=== PATIENT | female | born 1940 | race Caucasian/White ===

== ENCOUNTER 2018-03-22 11:56 | Inpatient (IN) | payer MEDICARE, MEDICAID ==
--- NOTE | 2018-03-22 12:29 | ED Physician Chart ---
ED Chief Complaint/HPI - Patient Information Date Seen:: 03/22/18 Time Seen:: 12:27 Chief Complaint:: Increased agitation History of Present Illness:: 78 yo female with bipolar disorder was brought from SNF to ER for evaluation of increased agitation and confusion. She did not have BM for 5 days. She had urinary frequency and burning sensation. She had abdominal pain with nausea and without vomiting. ED Review of Systems - Review of Systems General/Constitutional: No fever Skin: No skin lesions Head: Headache Eyes: No pain Neck: No neck pain Cardio Vascular: No chest pain Pulmonary: No SOB GI: Nausea, No vomiting, Constipation Musculoskeletal: No bone or joint pain Psychiatric: Prior psych history Neurological: Weakness ED Past Medical History - Past Medical History Past Medical History: HTN, DM, Dementia, Other (Lukemia in remission, pancreatitis) Social History: Non Smoker, No Alcohol, No Drug Use Psychiatricy History: Depression, Bipolar Family Medical History - Family Member Mother History Unknown: Yes ED Physical Exam - Physical Examination General/Constitutional: Awake Other Gen/Cons comments:: orinated to name, not place or time Skin: No skin lesions Neck: No nuchal rigidity Respiratory: No Wheeze/Rhonchi/Rales Cardio Vascular: RRR, No murmur, gallop, rubs, NL S1 S2 Other GI comments:: Abdominal distention and tenderness Extremities: normal strength in all extremities Neuro/Psych: No focal deficits ED Labs/Radiology/EKG Results - Lab Results Results: Laboratory Last Values WBC 2.6 Th/cmm (4.8-10.8) L 03/22/18 13:00 RBC 3.62 Mil/cmm (3.80-5.20) L 03/22/18 13:00 Hgb 12.0 gm/dL (12-16) 03/22/18 13:00 Hct 35.3 % (41.0-60) L 03/22/18 13:00 MCV 97.4 fl (81-100) 03/22/18 13:00 MCH 33.0 pg (27.0-31.0) H 03/22/18 13:00 MCHC Differential 33.9 pg (28.0-36.0) 03/22/18 13:00 RDW 13.2 % (11.5-20.0) 03/22/18 13:00 Plt Count 74 Th/cmm (150-400) L 03/22/18 13:00 MPV 8.3 fl 03/22/18 13:00 Neutrophils % 59.6 % (40.0-80.0) 03/22/18 13:00 Lymphocytes % 27.3 % (20.0-50.0) 03/22/18 13:00 Monocytes % 9.5 % (2.0-10.0) 03/22/18 13:00 Eosinophils % 3.0 % (0.0-5.0) 03/22/18 13:00 Basophils % 0.6 % (0.0-2.0) 03/22/18 13:00 Sodium 131 mEq/L (136-145) L 03/22/18 13:00 Potassium 3.7 mEq/L (3.5-5.1) 03/22/18 13:00 Chloride 98 mEq/L (98-107) 03/22/18 13:00 Carbon Dioxide 21.5 mEq/L (21.0-31.0) 03/22/18 13:00 Anion Gap 15.2 (7.0-16.0) 03/22/18 13:00 BUN 17 mg/dL (7-25) 03/22/18 13:00 Creatinine 0.7 mg/dL (0.6-1.2) 03/22/18 13:00 Est GFR ( Amer) TNP 03/22/18 13:00 Est GFR (Non-Af Amer) TNP 03/22/18 13:00 BUN/Creatinine Ratio 24.3 03/22/18 13:00 Glucose 118 mg/dL (70-105) H 03/22/18 13:00 Whole Bld Lactic Acid 4.28 mmol/L (0.60-1.99) H* 03/22/18 Unknown Calcium 9.7 mg/dL (8.6-10.3) 03/22/18 13:00 Magnesium 1.8 mg/dL (1.9-2.7) L 03/22/18 13:00 Total Bilirubin 0.7 mg/dL (0.3-1.0) 03/22/18 13:00 AST 25 U/L (13-39) 03/22/18 13:00 ALT 19 U/L (7-52) 03/22/18 13:00 Alkaline Phosphatase 60 U/L (34-104) 03/22/18 13:00 Total Protein 7.1 gm/dL (6.0-8.3) 03/22/18 13:00 Albumin 3.8 gm/dL (3.7-5.3) 03/22/18 13:00 Globulin 3.3 gm/dL 03/22/18 13:00 Albumin/Globulin Ratio 1.2 (1.0-1.8) 03/22/18 13:00 TSH 0.99 uIU/ml (0.34-5.60) 03/22/18 13:00 Urine Source RANDOM 03/22/18 13:30 Urine Color YELLOW 03/22/18 13:30 Urine Clarity HAZY (CLEAR) 03/22/18 13:30 Urine pH 6.5 (4.6 - 8.0) 03/22/18 13:30 Ur Specific [place] <= 1.005 (1.005-1.030) 03/22/18 13:30 Urine Protein NEGATIVE mg/dL (NEGATIVE) 03/22/18 13:30 Urine Glucose (UA) NEGATIVE mg/dL (NEGATIVE) 03/22/18 13:30 Urine Ketones NEGATIVE mg/dL (NEGATIVE) 03/22/18 13:30 Urine Blood NEGATIVE (NEGATIVE) 03/22/18 13:30 Urine Nitrate NEGATIVE (NEGATIVE) 03/22/18 13:30 Urine Bilirubin NEGATIVE (NEGATIVE) 03/22/18 13:30 Urine Urobilinogen 0.2 E.U./dL (0.2 - 1.0) 03/22/18 13:30 Ur Leukocyte Esterase TRACE (NEGATIVE) H 03/22/18 13:30 Urine RBC 0-2 /hpf (0-5) 03/22/18 13:30 Urine WBC 2-5 /hpf (0-5) 03/22/18 13:30 Ur Epithelial Cells FEW /lpf (FEW) 03/22/18 13:30 Urine Bacteria 1+ /hpf (NONE SEEN) H 03/22/18 13:30 - Radiology Results Results: CXR: no focal consolidation ED Assessment - Assessment General Assessment: UTI Leukopenia Hyponatremia Fecal impaction Psychosis Bipolar disorder Dementia Assessment/Comments:: CBC, CMP, UA CXR, EKG, KUB NS 1L IV bolus Rocephin 1g IV Fleet enema Dr. Rayo recommended patient to be admitted to geropsych unit and Dr. Rayo will manage UTI and other medical conditions. ED Septic Shock - . Is Septic Shock (SBP<90, OR Lactate>4 mmol\L) present?: No - <6hrs of presentation: Assessment of Lungs: Lung CTA bilateral Assessment of Heart: RRR EKG Interpretation: NSR Capillary refill evaluation: Capillary refill < 2 secs Skin Exam: Warm - Peripheral pulse evaluation Radial Peripheral pulse evaluation-quality: +2 (normal), Symmetrical - Time of Reassessment Time of Reassessment: 19:05 ED Reassessment (Disposition) - Reassessment Reassessment Condition:: Improved - Patient Disposition Discharge/Transfer:: Lauren w/in this hosp Admitting Medical Physician:: Sohail Rayo Admitting Psych Physician:: Gisel Chapa ED Discharge Plan - Patient Disposition Admit/Discharge/Transfer: Acute Care w/in this hosp Condition at Disposition: Guarded
[2018-03-22 13:11] LABS: % BASOPHILS 0.6 % (0.0-2.0); % LYMPHOCYTES 27.3 % (20.0-50.0); % MONOCYTES 9.5 % (2.0-10.0); % NEUTROPHILS 59.6 % (40.0-80.0); EOSINOPHILE ABSOLUTE 0.1 Th/cmm (0.1-0.4); HEMATOCRIT 35.3 % (41.0-60); LYMPHOCYTE ABSOLUTE 0.7 Th/cmm (1.5-3.0); MEAN CELL VOLUME 97.4 fl (81-100); MEAN CORPUSCULAR HGB CONC 33.9 pg (28.0-36.0); MEAN PLATELET VOLUME 8.3 fl; MONOCYTE ABSOLUTE 0.2 Th/cmm (0.3-1.0); NEUTROPHILE ABSOLUTE 1.6 Th/cmm (1.8-8.0); PLATELET COUNT 74 Th/cmm (150-400); RED BLOOD COUNT 3.62 Mil/cmm (3.80-5.20); RED CELL DISTRIBUTION WIDTH 13.2 % (11.5-20.0)
[2018-03-22 13:13] LABS: WHITE BLOOD COUNT 2.6 Th/cmm (4.8-10.8)
[2018-03-22 13:26] LABS: ALB/GLOB RATIO 1.2 (1.0-1.8); ALBUMIN 3.8 gm/dL (3.7-5.3); ALKALINE PHOSPHATASE 60 U/L (34-104); ANION GAP 15.2 (7.0-16.0); BILIRUBIN,TOTAL 0.7 mg/dL (0.3-1.0); BUN - UREA NITROGEN 17 mg/dL (7-25); CALCIUM SERUM 9.7 mg/dL (8.6-10.3); CARBON DIOXIDE 21.5 mEq/L (21.0-31.0); CHLORIDE 98 mEq/L (98-107); CREATININE - SERUM 0.7 mg/dL (0.6-1.2); GLUCOSE 118 mg/dL (70-105); MAGNESIUM 1.8 mg/dL (1.9-2.7); POTASSIUM SERUM 3.7 mEq/L (3.5-5.1); SGOT 25 U/L (13-39); SGPT/ALT 19 U/L (7-52); SODIUM SERUM 131 mEq/L (136-145); TOTAL PROTEIN,SERUM 7.1 gm/dL (6.0-8.3)
[2018-03-22 14:00] LABS: URINE MICROSCOPIC INDICATED? YES; URINE SOURCE RANDOM
[2018-03-22 14:01] LABS: URINE BILIRUBIN NEGATIVE (NEGATIVE); URINE BLOOD NEGATIVE (NEGATIVE); URINE GLUCOSE (UA) NEGATIVE (NEGATIVE); URINE KETONE NEGATIVE (NEGATIVE); URINE LEUKOCYTE ESTERASE TRACE (NEGATIVE); URINE NITRATE NEGATIVE (NEGATIVE); URINE PH 6.5 (4.6 - 8.0); URINE PROTEIN NEGATIVE (NEGATIVE); URINE UROBILINOGEN 0.2 E.U./dL (0.2 - 1.0)
[2018-03-22 14:05] LABS: URINE CLARITY HAZY (CLEAR); URINE COLOR YELLOW
[2018-03-22 14:07] LABS: URINE BACTERIA 1+ /hpf (NONE SEEN); URINE EPITHELIAL CELLS FEW /lpf (FEW); URINE RBC 0-2 /hpf (0-5)
--- NOTE | 2018-03-22 14:18 | Diagnostic Imaging Report ---
Portable chest x-ray HISTORY: Shortness of breath The overall heart size is difficult to assess with portable technique in a poor inspiration, but appears somewhat generous. Atherosclerotic calcination seen in the aorta. There is accentuation of the left upper lobe lung markings. Findings may be chronic. Early pneumonia is difficult to exclude. Clinical correlation is needed. IMPRESSION: 1. Accentuation of the left upper lobe interstitial lung markings. The changes may be chronic. Early pneumonia is difficult to exclude. Clinical correlation is needed. 2. Generous heart size with atherosclerotic vascular changes
[2018-03-22] MEDS ORDERED: Sodium Chloride 0.9% 1,000 ML IV ONE (15:08)
[2018-03-22] MEDS ORDERED: cefTRIAXone 1 GM in Sodium Chloride 0.9% 50 ML IV ONE (15:08)
[2018-03-22] MEDS ORDERED: Fleet Enema 135 mL RC ONE (16:21)
[2018-03-22 21:40] VITALS: BP 153/77
[2018-03-22] MEDS ORDERED: POLYETHYLENE GLYCOL 3350 17 GM PACK PO PRN (21:44)
[2018-03-22] MEDS: INSULIN HUMAN ISOPHANE (NPH) 100 UNITS/ML SUBQ SCH (22:16)
[2018-03-23] MEDS: Levothyroxine 0.1 Mg Tab PO SCH (06:46)
[2018-03-23] MEDS: Atorvastatin Calcium 10 MG TAB PO SCH (09:02)
[2018-03-23] MEDS: Multivitamin Tab PO SCH (09:05)
--- NOTE | 2018-03-23 09:36 | Diagnostic Imaging Report ---
Exam: KUB of the abdomen HISTORY: Abdominal distention constipation Findings: KUB of the abdomen reviewed. The study demonstrates large amount of fecal content. The bowel gas distribution nonspecific. Bony structures unremarkable for degenerative changes. Vascular calcifications are noted. IMPRESSION: Large amount of fecal content throughout the colon. Degenerative changes lumbar sacral spine.
--- NOTE | 2018-03-23 16:54 | History & Physical ---
ADMIT DATE: 03/22/2018 IDENTIFYING INFORMATION: The patient is an 78-year-old female. CHIEF COMPLAINT: No specific answer. HISTORY OF PRESENT ILLNESS: The patient is an 78-year-old female with history of bipolar disorder, brought from SNF facility because of her agitation and confusion. She did not have a bowel movement in 5 days with urinary frequency, burning sensations, abdominal pain, nausea without vomiting. The patient herself was a poor historian, unable to participate in a meaningful conversation, unable to tell me her age, her date of . She reported that she has three children, one passed. She denies substance abuse problem. However, she is a poor historian. PAST PSYCHIATRIC HISTORY: Unobtainable. History of bipolar disorder, psychosis, and dementia according to the record. MEDICAL HISTORY: The patient has hyponatremia, fecal impaction, urinary tract infection and leukopenia. ALLERGIES: THE PATIENT IS ALLERGIC TO ASPIRIN, HYDROMORPHONE, IBUPROFEN. CURRENT MEDICATIONS: Olanzapine 7.5 mg at bedtime. She is also on medication for hypothyroidism and eye drops and insulin, hydrochlorothiazide, and atorvastatin and antibiotic for UTI infection and amantadine. FAMILY AND SOCIAL HISTORY: The patient came from a nursing facility. Unable to tell me where she lives, her age. She is not sure there is any family history of psychotic disorder. MENTAL STATUS EXAMINATION: The patient was appropriately dressed, not very well groomed. She was in bed, alert, but she was rambling, unable to participate in meaningful conversation or make safe plan for self-care, unable to tell me the date, where she is, why she is here. Long-term memory is poor, cannot tell me her age, date of . Concentration is poor. Her insight and judgment is impaired. IMPRESSION: AXIS I: Psychosis, not otherwise specified, dementia. MEDICAL DIAGNOSIS: Deferred to the medical doctor. Her assets, she is accepting treatment. Negative for coping skills. INITIAL TREATMENT PLAN: The patient will be continued with her medication. We will do group therapy, milieu therapy, and individual therapy. ESTIMATED LENGTH OF STAY: 3-7 days. DISCHARGE CRITERIA: Decreased agitation, no longer acting out. After discharge, outpatient. JOB# [id number]
[2018-03-23] MEDS ORDERED: Fleet Enema 135 mL RC PRN (16:58)
--- NOTE | 2018-03-23 17:15 | History & Physical ---
ADMIT DATE: 03/22/2018 CHIEF COMPLAINT: Nonverbal. HISTORY OF PRESENT ILLNESS: An 78-year-old -[place] female brought into the Emergency Room from fpc for evaluation of increasing agitation and confusion. After being evaluated, the patient was admitted to the hospital for further treatment. Upon further evaluation, it was noted that the patient has a longstanding history of constipation. Does admit to have increased frequency and urgency of urination with abdominal pain without any nausea and vomiting. The patient was extensively evaluated in the Emergency Room and noted to have a urinary tract infection and fecal impaction. The patient is now being admitted to the psychiatric unit for psych management. PAST MEDICAL HISTORY: Remarkable for; 1. Dementia. 2. Diabetes. 3. Hypertension. 4. DJD. 5. Glaucoma. 6. Hypothyroidism. 7. Hyperlipidemia. MEDICATIONS AT HOME: 1. Amantadine. 2. Atorvastatin. 3. Calcium carbonate. 4. Clonidine. 5. Colace. 6. Hydralazine. 7. Hydrochlorothiazide. 8. Insulin. 9. Levothyroxine. 10. Xalatan eyedrops. ALLERGIES: The patient is allergic to IBUPROFEN, HYDROMORPHONE, and ASPIRIN. SOCIAL HISTORY: The patient lives in a [facility]. The patient has no history of smoking cigarette, alcohol, or drug use. FAMILY MEDICAL HISTORY: Remarkable for diabetes. REVIEW OF SYSTEMS: The patient denies any headache, denies any chest pain, denies any shortness of breath, denies any palpitation, no dizziness. No nausea, vomiting, diarrhea, dysuria, hematuria, hematochezia, or melena. No seizure or syncopal episode. PHYSICAL EXAMINATION: GENERAL: The patient is alert, awake, lying in the bed without any acute distress. VITAL SIGNS: Temperature 98, pulse is 75, respiratory rate 18, and blood pressure 143/55. HEENT: Normocephalic, atraumatic. Extraocular muscles are intact. Tongue was pink and coated. Poor dentition noted. No oral lesion, no exudate. No sinus tenderness. NECK: Supple, no JVD, no hepatojugular reflux. No lymphadenopathy, no thyromegaly, no carotid bruit. HEART: Both heart sounds are regular. No S3, no S4, no murmur. CHEST AND LUNGS: Equal in expansion, no wheezing, no crackles. ABDOMEN: Soft. No guarding, no rigidity. Bowel sounds are present. No palpable mass. EXTREMITIES: No edema, no cyanosis. Peripheral pulses +2. No calf tenderness. NEUROLOGIC: Alert, awake, follows commands. II through XII cranial nerves are intact. Power in upper and lower extremities 5-. Sensation to touch intact. [place] in both toes are down going. No cerebral sign. AVAILABLE DIAGNOSTIC DATA: White count of 2.6, hemoglobin 12, and platelet count of 74. Urinalysis remarkable for 2-5 high WBC, few bacteria noted. Chest x-ray, no focal consolidation. KUB did reveal the patient has a fecal impaction, degenerative changes of the spine also noted. CLINICAL IMPRESSION: 1. Leukopenia and thrombocytopenia. 2. Fecal impaction. 3. Urinary tract infection. 4. Psychotic disorder. 5. Hypertension. 6. Hyperlipidemia. 7. Degenerative joint disease. 8. Elevated lactic acid, by history. 9. Fall precautions. PLAN: 1. Repeat CBC for now. 2. Anticonstipation medication. 3. Antibiotic. 4. General nursing care. 5. Appropriate home medicine reconciliation. 6. Follow lab. 7. We will resume Synthroid for hypothyroidism. 8. Diabetes management. 9. We will continue to follow this patient during the stay in the hospital. 10. Anticonstipation medication will be adjusted based on her bowel movement. 11. Care plan reviewed and discussed with staff. JOB# [id number]
[2018-03-23] MEDS: Lactulose 10 Gm/15 mL 30mL UDC PO SCH (17:29)
[2018-03-23] MEDS: Docusate Sodium/Senna Tab PO SCH (17:30)
[2018-03-23] MEDS: INSULIN ASPART SLIDING SCALE 100 UNITS/ML UNIT SUBQ SCH (21:10)
[2018-03-23] MEDS: INSULIN HUMAN ISOPHANE (NPH) 100 UNITS/ML SUBQ SCH (21:10)
[2018-03-24] MEDS: INSULIN ASPART SLIDING SCALE 100 UNITS/ML UNIT SUBQ SCH ×4 (06:30→20:55)
[2018-03-24] MEDS: Levothyroxine 0.1 Mg Tab PO SCH (06:31)
[2018-03-24 07:52] LABS: % BASOPHILS 0.7 % (0.0-2.0); % EOSINOPHILS 3.5 % (0.0-5.0); % LYMPHOCYTES 28.2 % (20.0-50.0); % MONOCYTES 10.6 % (2.0-10.0); EOSINOPHILE ABSOLUTE 0.1 Th/cmm (0.1-0.4); HEMATOCRIT 35.9 % (41.0-60); HEMOGLOBIN 12.4 gm/dL (12-16); LYMPHOCYTE ABSOLUTE 0.8 Th/cmm (1.5-3.0); MEAN CELL VOLUME 97.2 fl (81-100); MEAN CORPUSCULAR HEMOGLOBIN 33.5 pg (27.0-31.0); MEAN CORPUSCULAR HGB CONC 34.5 pg (28.0-36.0); MEAN PLATELET VOLUME 8.2 fl; MONOCYTE ABSOLUTE 0.3 Th/cmm (0.3-1.0); NEUTROPHILE ABSOLUTE 1.8 Th/cmm (1.8-8.0); PLATELET COUNT 82 Th/cmm (150-400); RED BLOOD COUNT 3.69 Mil/cmm (3.80-5.20); RED CELL DISTRIBUTION WIDTH 13.1 % (11.5-20.0)
[2018-03-24 08:03] LABS: ALB/GLOB RATIO 1.2 (1.0-1.8); ALBUMIN 3.6 gm/dL (3.7-5.3); ALKALINE PHOSPHATASE 56 U/L (34-104); ANION GAP 10.5 (7.0-16.0); BUN - UREA NITROGEN 11 mg/dL (7-25); CALCIUM SERUM 9.6 mg/dL (8.6-10.3); CARBON DIOXIDE 25.2 mEq/L (21.0-31.0); CHLORIDE 101 mEq/L (98-107); CREATININE - SERUM 0.6 mg/dL (0.6-1.2); GLUCOSE 156 mg/dL (70-105); POTASSIUM SERUM 3.7 mEq/L (3.5-5.1); SGOT 23 U/L (13-39); SGPT/ALT 18 U/L (7-52); SODIUM SERUM 133 mEq/L (136-145); TOTAL PROTEIN,SERUM 6.7 gm/dL (6.0-8.3)
[2018-03-24] MEDS: Docusate Sodium/Senna Tab PO SCH ×2 (08:31→17:38)
[2018-03-24] MEDS: Lactulose 10 Gm/15 mL 30mL UDC PO SCH ×2 (08:32→17:38)
[2018-03-24] MEDS: Multivitamin Tab PO SCH (08:32)
[2018-03-24] MEDS: Atorvastatin Calcium 10 MG TAB PO SCH (08:33)
[2018-03-24] MEDS: INSULIN HUMAN ISOPHANE (NPH) 100 UNITS/ML SUBQ SCH (21:19)
--- NOTE | 2018-03-24 22:25 | Progress Notes ---
DATE: 03/24/2018 Case was discussed with staff of the patient, reviewed records. The patient continues to be confused, demented, continues to be unable to make safe plan for self-care. Continue to have poor insight. Unable to participate in meaningful conversation and take care of herself. She is able, however, to feed herself, no side effects with the medication, no sedation, no nausea, no extrapyramidal symptoms. We will continue outpatient group therapy, milieu therapy, and adjust the medications. [facility]# [id number]
--- NOTE | 2018-03-24 22:49 | Psychosocial Evaluation ---
DATE OF SERVICE: 03/24/2018 IDENTIFICATION: An 78-year-old female. The patient seen and examined. The patient is lying in the bed. The patient has no new complaint. Glucoscan is reviewed. PHYSICAL EXAMINATION: On today's examination: VITAL SIGNS: Temperature 98, pulse is 74, respiratory rate 18, blood pressure 122/68. HEENT: No facial asymmetry. NECK: Supple, no JVD. HEART: Regular. CHEST: Lungs equal in expansion, no wheezing, no crackles. ABDOMEN: Soft. EXTREMITIES: No edema. AVAILABLE DIAGNOSTIC DATA: White count of 3, hemoglobin of 12.4, platelet count of 82, monocytes of 10.6. Glucoscan is reviewed. CLINICAL IMPRESSION: 1. Mild pancytopenia, needs further workup, which can be done as an outpatient. We will monitor the lab for now and do prelim workup. 2. Diabetes management. 3. General nursing care. 4. Psych medication. 5. Labs followup. 6. Care plan reviewed and discussed. JOB# [id number]
[2018-03-25] MEDS: INSULIN ASPART SLIDING SCALE 100 UNITS/ML UNIT SUBQ SCH ×3 (06:33→20:31)
[2018-03-25] MEDS: Levothyroxine 0.1 Mg Tab PO SCH (06:39)
[2018-03-25] MEDS: Lactulose 10 Gm/15 mL 30mL UDC PO SCH ×2 (08:46→16:55)
[2018-03-25] MEDS: Atorvastatin Calcium 10 MG TAB PO SCH (08:47)
[2018-03-25] MEDS: Multivitamin Tab PO SCH (08:48)
[2018-03-25] MEDS: Docusate Sodium/Senna Tab PO SCH ×2 (11:16→16:55)
[2018-03-25] MEDS: INSULIN HUMAN ISOPHANE (NPH) 100 UNITS/ML SUBQ SCH (20:32)
--- NOTE | 2018-03-25 22:15 | Progress Notes ---
DATE: 03/25/2018 IDENTIFICATION: An 78-year-old female. SUBJECTIVE: The patient is seen and examined. OBJECTIVE: GENERAL: The patient is lying in the bed. The patient has no new complaint. VITAL SIGNS: Temperature 97.3, pulse rate is 64, respiratory rate 18, blood pressure 110/56. HEENT: No facial asymmetry. NECK: Supple, no JVD. HEART: Regular. CHEST: Equal in expansion, no wheezing, no crackles. ABDOMEN: Soft. No guarding, no rigidity. Bowel sounds are present. No palpable mass. EXTREMITIES: No edema. CLINICAL IMPRESSION: 1. Diabetes. 2. Dementia. 3. Hypertension. 4. Degenerative joint disease. 5. Glaucoma. 6. Hyperlipidemia. 7. Pancytopenia. 8. Fall precautions. PLAN: 1. Anticonstipation medicine. 2. Antibiotic. 3. General nursing care. 4. Diabetes management. 5. Synthroid. 6. Follow lab. 7. Fall precaution. 8. Psychiatric medication management deferred to psychiatrist. 9. Care plan reviewed and discussed with staff. JOB# [id number]
--- NOTE | 2018-03-26 01:32 | Progress Notes ---
DATE: 03/25/2018 Case discussed with staff of the patient and reviewed records. The patient continues to be confused, continues to be unable to make safe plan for her self-care. She continues to be unpredictable, impulsive, needing redirection. She continues to have poor insight about the whole situation, confused, easily agitated, at times suspicious and paranoid. No side effects to the medication, no sedation, no nausea and no extrapyramidal symptoms. We will continue the patient in group therapy and milieu therapy and adjust the medication as needed. JOB# [id number]
[2018-03-26] MEDS: INSULIN ASPART SLIDING SCALE 100 UNITS/ML UNIT SUBQ SCH ×2 (06:29→12:01)
[2018-03-26] MEDS: Levothyroxine 0.1 Mg Tab PO SCH (06:35)
--- NOTE | 2018-03-26 09:12 | General Progress Note ---
Subjective - Review of Systems Service Date: 03/26/18 Subjective: Patient is seen and examined. No new complaints. Discussed with staff re; their concern and care plan. Objective - Results Result Diagrams: 03/24/18 07:42 03/24/18 07:42 Recent Labs: Laboratory Last Values WBC 3.0 Th/cmm (4.8-10.8) L 03/24/18 07:42 RBC 3.69 Mil/cmm (3.80-5.20) L 03/24/18 07:42 Hgb 12.4 gm/dL (12-16) 03/24/18 07:42 Hct 35.9 % (41.0-60) L 03/24/18 07:42 MCV 97.2 fl (81-100) 03/24/18 07:42 MCH 33.5 pg (27.0-31.0) H 03/24/18 07:42 MCHC Differential 34.5 pg (28.0-36.0) 03/24/18 07:42 RDW 13.1 % (11.5-20.0) 03/24/18 07:42 Plt Count 82 Th/cmm (150-400) L 03/24/18 07:42 MPV 8.2 fl 03/24/18 07:42 Neutrophils % 57.0 % (40.0-80.0) 03/24/18 07:42 Lymphocytes % 28.2 % (20.0-50.0) 03/24/18 07:42 Monocytes % 10.6 % (2.0-10.0) H 03/24/18 07:42 Eosinophils % 3.5 % (0.0-5.0) 03/24/18 07:42 Basophils % 0.7 % (0.0-2.0) 03/24/18 07:42 ESR 26 mm/hr (0-30) 03/24/18 07:42 Sodium 133 mEq/L (136-145) L 03/24/18 07:42 Potassium 3.7 mEq/L (3.5-5.1) 03/24/18 07:42 Chloride 101 mEq/L (98-107) 03/24/18 07:42 Carbon Dioxide 25.2 mEq/L (21.0-31.0) 03/24/18 07:42 Anion Gap 10.5 (7.0-16.0) 03/24/18 07:42 BUN 11 mg/dL (7-25) 03/24/18 07:42 Creatinine 0.6 mg/dL (0.6-1.2) 03/24/18 07:42 Est GFR ( Amer) TNP 03/24/18 07:42 Est GFR (Non-Af Amer) TNP 03/24/18 07:42 BUN/Creatinine Ratio 18.3 03/24/18 07:42 Glucose 156 mg/dL (70-105) H 03/24/18 07:42 POC Glucose 119 MG/DL (70 - 105) H 03/26/18 06:14 Whole Bld Lactic Acid 4.28 mmol/L (0.60-1.99) H* 03/22/18 Unknown Calcium 9.6 mg/dL (8.6-10.3) 03/24/18 07:42 Magnesium 1.8 mg/dL (1.9-2.7) L 03/22/18 13:00 Total Bilirubin 1.0 mg/dL (0.3-1.0) 03/24/18 07:42 AST 23 U/L (13-39) 03/24/18 07:42 ALT 18 U/L (7-52) 03/24/18 07:42 Alkaline Phosphatase 56 U/L (34-104) 03/24/18 07:42 Creatine Kinase 35 U/L (30-223) 03/24/18 14:47 Total Protein 6.7 gm/dL (6.0-8.3) 03/24/18 07:42 Albumin 3.6 gm/dL (3.7-5.3) L 03/24/18 07:42 Globulin 3.1 gm/dL 03/24/18 07:42 Albumin/Globulin Ratio 1.2 (1.0-1.8) 03/24/18 07:42 TSH 0.99 uIU/ml (0.34-5.60) 03/22/18 13:00 Urine Source RANDOM 03/22/18 13:30 Urine Color YELLOW 03/22/18 13:30 Urine Clarity HAZY (CLEAR) 03/22/18 13:30 Urine pH 6.5 (4.6 - 8.0) 03/22/18 13:30 Ur Specific [place] <= 1.005 (1.005-1.030) 03/22/18 13:30 Urine Protein NEGATIVE mg/dL (NEGATIVE) 03/22/18 13:30 Urine Glucose (UA) NEGATIVE mg/dL (NEGATIVE) 03/22/18 13:30 Urine Ketones NEGATIVE mg/dL (NEGATIVE) 03/22/18 13:30 Urine Blood NEGATIVE (NEGATIVE) 03/22/18 13:30 Urine Nitrate NEGATIVE (NEGATIVE) 03/22/18 13:30 Urine Bilirubin NEGATIVE (NEGATIVE) 03/22/18 13:30 Urine Urobilinogen 0.2 E.U./dL (0.2 - 1.0) 03/22/18 13:30 Ur Leukocyte Esterase TRACE (NEGATIVE) H 03/22/18 13:30 Urine RBC 0-2 /hpf (0-5) 03/22/18 13:30 Urine WBC 2-5 /hpf (0-5) 03/22/18 13:30 Ur Epithelial Cells FEW /lpf (FEW) 03/22/18 13:30 Urine Bacteria 1+ /hpf (NONE SEEN) H 03/22/18 13:30 - Physical Exam Vitals and I&O: Vital Signs Temp 97.4 F 03/26/18 05:53 Pulse 101 03/26/18 05:53 Resp 20 03/26/18 05:53 BP 149/77 03/26/18 05:53 Pulse Ox 98 03/26/18 05:53 Intake & Output 03/25/18 03/26/18 03/26/18 18:59 06:59 18:59 Intake Total 1400 480 Balance 1400 480 Intake: Oral 1400 480 Other: # Voids 4 2 # Bowel Movements 1 Active Medications: Current Medications Amantadine HCl (Symmetrel) 100 mg PO BID [facility] Stop: 05/22/18 08:59 Last Admin: 03/25/18 16:54 Dose: 100 mg Atorvastatin Calcium (Lipitor) 20 mg PO DAILY [facility] Stop: 05/22/18 08:59 Last Admin: 03/25/18 08:47 Dose: 20 mg Calcium Carbonate (Os-Ronn) 500 mg PO DAILY [facility] Stop: 05/22/18 08:59 Last Admin: 03/25/18 08:47 Dose: 500 mg Docusate Sodium (Colace) 100 mg PO DAILY [facility] Stop: 05/23/18 08:59 Last Admin: 03/25/18 08:48 Dose: 100 mg Hydralazine HCl (Apresoline) 12.5 mg PO DAILY [facility] Stop: 05/22/18 08:59 Last Admin: 03/25/18 08:51 Dose: 12.5 mg Hydrochlorothiazide (Hctz) 12.5 mg PO BID [facility] Stop: 05/22/18 08:59 Last Admin: 03/25/18 08:49 Dose: 12.5 mg Insulin Aspart (Novolog Insulin Sliding Scale) 0 units SUBQ ACHS [facility] PRN Reason: Protocol Stop: 05/22/18 20:59 Last Admin: 03/26/18 06:29 Dose: Not Given Insulin Human NPH (Novolin N) 10 units SUBQ HS [facility] PRN Reason: Protocol Stop: 05/21/18 21:59 Last Admin: 03/25/18 20:32 Dose: 10 units Lactulose (Cephulac) 30 gm PO BID [facility] Stop: 05/22/18 16:59 Last Admin: 03/25/18 16:55 Dose: 30 gm Latanoprost (Xalatan 0.005% [facility]) 1 drop EACH EYE DAILY [facility] Stop: 05/22/18 08:59 Last Admin: 03/25/18 08:47 Dose: 1 drop Levothyroxine Sodium (Synthroid) 0.1 mg PO QDAC [facility] Stop: 05/22/18 07:29 Last Admin: 03/26/18 06:35 Dose: 0.1 mg Loratadine (Claritin) 10 mg PO DAILY [facility] Stop: 05/22/18 08:59 Last Admin: 03/25/18 11:16 Dose: 10 mg Lorazepam (Ativan) 0.5 mg PO Q6HR PRN; Protocol PRN Reason: Agitation Stop: 05/21/18 21:18 Last Admin: 03/25/18 20:57 Dose: 0.5 mg Metformin HCl (Glucophage) 850 mg PO BIDWM [facility] Stop: 05/22/18 07:59 Last Admin: 03/25/18 08:48 Dose: 850 mg Multivitamins/Vitamin C (Theragran) 1 tab PO DAILY [facility] Stop: 05/22/18 08:59 Last Admin: 03/25/18 08:48 Dose: 1 tab Olanzapine (Zyprexa) 7.5 mg PO HS [facility] PRN Reason: Protocol Stop: 05/21/18 21:59 Last Admin: 03/25/18 20:33 Dose: 7.5 mg Polyethylene Glycol (Miralax) 17 gm PO DAILY PRN PRN Reason: Constipation Stop: 05/21/18 21:43 Last Admin: 03/23/18 10:25 Dose: 17 gm Sennosides (Senna Plus 50 Mg-8.6 Mg) 1 tab PO BID [facility] Stop: 05/22/18 16:59 Last Admin: 03/25/18 16:55 Dose: 1 tab Sodium Phosphate (Fleet Enema) 135 ml RC PRN PRN PRN Reason: Constipation Stop: 05/22/18 16:57 Zolpidem Tartrate (Ambien) 5 mg PO HS PRN PRN Reason: Insomnia Stop: 05/21/18 21:22 Last Admin: 03/25/18 20:57 Dose: 5 mg General: Alert, Cooperative, No acute distress HEENT: Atraumatic, PERRLA, EOMI Neck: Supple, JVD Cardiovascular: Regular rate, Normal S1, Normal S2 Lungs: Clear to auscultation Abdomen: Bowel sounds, Soft Neurological: Normal gait Psych/Mental Status: Other (labile.) Assessment/Plan - Assessment Assessment: Diabetes. Hypertension. Hyperlipedemia. Psych disorder DJD Glaucoma. fecal Impaction UTI. Hypothyrodism. - Plan Plan: PO antibiotics Anti constipation meds. General nursing care Diabetes management Synthroid Statin Anti HTN meds. Follow lab. Psych meds. Psych follow up. Continue current care. Discussed with staff.
[2018-03-26] MEDS: Lactulose 10 Gm/15 mL 30mL UDC PO SCH (10:16)
[2018-03-26] MEDS: Multivitamin Tab PO SCH (10:16)
[2018-03-26] MEDS: Atorvastatin Calcium 10 MG TAB PO SCH (10:17)
[2018-03-26] MEDS: Docusate Sodium/Senna Tab PO SCH (10:17)
--- NOTE | 2018-03-27 02:48 | Progress Notes ---
DATE: 03/26/2018 SUBJECTIVE: Case was discussed with the staff of the patient and reviewed records. The patient continues to be confused, demented, unable to make a safe plan for self-care, looking disheveled, disorganized, internally preoccupied. PLAN: She is compliant with the medication with no side effects, no sedation, no nausea, no extrapyramidal symptoms. We will continue to work the patient in group therapy, milieu therapy, and adjust medication as needed. JOB# [id number]
[2018-03-27 17:09] LABS: FOLIC ACID >20.0 ng/mL (>3.0)
--- NOTE | 2018-03-29 12:25 | Discharge Summary ---
DATE OF DISCHARGE: 03/26/2018 PSYCHIATRIC DISCHARGE SUMMARY PATIENT'S AGE: 78. SEX: Female. FINAL DIAGNOSIS/PRIMARY DIAGNOSIS: Unspecified psychosis. SECONDARY DIAGNOSIS: Dementia, moderate to severe. REASON FOR HOSPITALIZATION: The patient was admitted to the hospital because of agitation and confusion. HOSPITAL COURSE: The patient continued to be confused and agitated. The patient also was restless and needed close monitoring. She also was having difficulty following directions. She also at times was suspicious and paranoid. Gradually, the patient's affect was brighter. The patient was not sedated and has no side effects. The patient was discharged from the hospital and went back to [facility]. The patient had no major medical problems while in the hospital and no major abnormal labs. AFTER DISCHARGE PLANS: The patient discharged from the hospital and went back to [place] with plans for outpatient treatment and followup there. [facility]# [id number]
== END 2018-03-26 15:40 | disposition left against medical advice (07) | DRG 885 ==
LOC: ER 11:56 → GERO2 17:10 → GERO 03-23 09:14
PROVIDERS: ADMIT Psychiatry & Neurology Psychiatry; ATTEND Psychiatry & Neurology Psychiatry
DX: F29 Unspecified psychosis not due to a substance or known physiological condition (principal); N39.0 Urinary tract infection, site not specified; D61.818 Other pancytopenia; E87.1 Hypo-osmolality and hyponatremia; F03.90 Unspecified dementia, unspecified severity, without behavioral disturbance, psychotic disturbance, mood disturbance, and anxiety; D69.6 Thrombocytopenia, unspecified; K56.41 Fecal impaction; I10 Essential (primary) hypertension; E78.5 Hyperlipidemia, unspecified; M19.90 Unspecified osteoarthritis, unspecified site; E11.9 Type 2 diabetes mellitus without complications; F31.9 Bipolar disorder, unspecified; H40.9 Unspecified glaucoma; E03.9 Hypothyroidism, unspecified; Z91.81 History of falling; Z85.6 Personal history of leukemia
CPT/HCPCS: 36415-UA; 71045-TC; 74000-TC; 80053-TC; 81001-TC; 82550-TC; 82607-90; 82746-90; 82948-90; 83605; 83735-TC; 84443-TC; 85025-TC; 85652-TC; 86430-90; 93005; J0696; J1815; J7030; J7051; Z7610

== ENCOUNTER 2019-05-17 15:12 | Inpatient (IN) | payer MEDICARE, MEDICAID ==
--- NOTE | 2019-05-17 15:51 | ED Physician Chart ---
ED Chief Complaint/HPI - Patient Information Date Seen:: 05/17/19 Time Seen:: 15:26 Chief Complaint:: weakness History of Present Illness:: this is an 79 yo female from a correction for evaluation and treatment because of the sudden onset of weakness. Allergies:: Allergies Allergy/AdvReac Type Severity Reaction Status Date / Time aspirin Allergy Verified 03/22/18 12:34 hydromorphone [From Dilaudid] Allergy Verified 03/22/18 12:34 ibuprofen Allergy Verified 03/22/18 12:34 NSAIDS (Non-Steroidal Allergy Verified 03/22/18 12:34 Anti-Inflamma Vitals:: Vital Signs - 8 hr 05/17/19 15:19 Temp 97.7 F HR 76 RR 16 BP 134/56 O2 Sat % 76 Historian:: Medical Records Review:: Nurse's Note Reviewed, Old Chart Reviewed ED Review of Systems - Review of Systems General/Constitutional: No fever, No chills, No weight loss, No weakness, No diaphoresis, No edema, No loss of appetite, Other (she is unable to give a review of systems.) Skin: No skin lesions, No rash, No bruising Head: No headache, No light-headedness Eyes: No loss of vision, No pain, No diplopia ENT: No earache, No nasal drainage, No sore throat, No tinnitus Neck: No neck pain, No swelling, No thyromegaly, No stiffness, No mass noted Cardio Vascular: No chest pain, No palpitations, No PND, No orthopnea, No edema Pulmonary: No SOB, No cough, No sputum, No wheezing GI: No nausea, No vomiting, No diarrhea, No pain, No melena, No hematochezia, No constipation, No hematemesis G/U: No dysuria, No frequency, No hematuria Musculoskeletal: No bone or joint pain, No back pain, No muscle pain Endocrine: No polyuria, No polydipsia Psychiatric: No prior psych history, No depression, No anxiety, No suicidal ideation Hematopoietic: No bruising, No lymphadenopathy Allergic/Immuno: No urticaria, No angioedema Neurological: No syncope, No focal symptoms, No weakness, No paresthesia, No headache, No seizure, No dizziness, No confusion, No vertigo ED Past Medical History - Past Medical History Obtainable: Yes Past Medical History: Dementia, Other (psychosis) Family History: None Social History: Non Smoker, No Alcohol, No Drug Use, Care Facility Surgical History: None Psychiatricy History: Bipolar, Dementia Family Medical History - Family Member Mother History Unknown: Yes ED Labs/Radiology/EKG Results - Lab Results Results: Abnormal Lab Results 05/17/19 05/17/19 05/17/19 15:45 15:45 15:45 WBC 2.1 L* RBC 3.38 L Hgb 11.1 L Hct 33.0 L MCV 97.6 MCH 32.9 H MCHC Differential 33.7 RDW 14.3 Plt Count 62 L MPV 8.6 Add Manual Diff YES Neutrophils % HOIST OPERATOR Lymphocytes % HOIST OPERATOR Monocytes % HOIST OPERATOR Eosinophils % HOIST OPERATOR Basophils % HOIST OPERATOR PT 12.5 H INR 1.21 PTT (Actin FS) 28.5 Sodium Potassium Chloride Carbon Dioxide Anion Gap BUN Creatinine Est GFR ( Amer) Est GFR (Non-Af Amer) BUN/Creatinine Ratio Glucose Calcium Total Bilirubin AST ALT Alkaline Phosphatase Troponin I Total Protein Albumin Globulin Albumin/Globulin Ratio Triglycerides 74 Cholesterol 138 LDL Cholesterol Direct 88 HDL Cholesterol 37 05/17/19 05/17/19 15:45 15:45 WBC RBC Hgb Hct MCV MCH MCHC Differential RDW Plt Count MPV Add Manual Diff Neutrophils % Lymphocytes % Monocytes % Eosinophils % Basophils % PT INR PTT (Actin FS) Sodium 137 Potassium 3.7 Chloride 105 Carbon Dioxide 24.6 Anion Gap 11.1 BUN 13 Creatinine 0.5 L Est GFR ( Amer) TNP Est GFR (Non-Af Amer) TNP BUN/Creatinine Ratio 26.0 Glucose 88 Calcium 9.1 Total Bilirubin 0.7 AST 24 ALT 11 Alkaline Phosphatase 38 Troponin I 0.02 Total Protein 6.9 Albumin 3.2 L Globulin 3.7 Albumin/Globulin Ratio 0.9 L Triglycerides Cholesterol LDL Cholesterol Direct HDL Cholesterol - Radiology Results Results: chest x-ray = fibrotic lung disease - EKG Interpretations EKG Time:: 15:40 Rate & Rhythm: rate = 77,sinus Correll: left axis ED Assessment - Assessment General Assessment: low whilte blood count low platelet count ED Septic Shock - . Is Septic Shock (SBP<90, OR Lactate>4 mmol\L) present?: No - <6hrs of presentation: Vital Signs: Vital Signs - 8 hr 05/17/19 15:19 Temp 97.7 F HR 76 RR 16 BP 134/56 O2 Sat % 76 ED Reassessment (Disposition) - Reassessment Reassessment Condition:: Unchanged - Diagnosis Diagnosis:: low platelet count low white count dementia - Patient Disposition Discharge/Transfer:: Acute Care w/in this hosp Admitted to:: Med/Surg Admitting Medical Physician:: Renée Chong Condition at Disposition:: Unchanged
[2019-05-17 15:54] LABS: HEMOGLOBIN 11.1 gm/dL (12-16); PLATELET COUNT 62 Th/cmm (150-400)
[2019-05-17 15:57] LABS: MEAN CELL VOLUME 97.6 fl (81-100); MEAN CORPUSCULAR HEMOGLOBIN 32.9 pg (27.0-31.0); MEAN CORPUSCULAR HGB CONC 33.7 pg (28.0-36.0); RED BLOOD COUNT 3.38 Mil/cmm (3.80-5.20); RED CELL DISTRIBUTION WIDTH 14.3 % (11.5-20.0)
[2019-05-17 16:05] LABS: INR 1.21 (0.5-1.4); WHITE BLOOD COUNT 2.1 Th/cmm (4.8-10.8)
[2019-05-17 16:09] LABS: ALB/GLOB RATIO 0.9 (1.0-1.8); ALBUMIN 3.2 gm/dL (3.7-5.3); ALKALINE PHOSPHATASE 38 U/L (34-104); ANION GAP 11.1 (7.0-16.0); BILIRUBIN,TOTAL 0.7 mg/dL (0.3-1.0); BUN - UREA NITROGEN 13 mg/dL (7-25); CALCIUM SERUM 9.1 mg/dL (8.6-10.3); CARBON DIOXIDE 24.6 mEq/L (21.0-31.0); CHLORIDE 105 mEq/L (98-107); CREATININE - SERUM 0.5 mg/dL (0.6-1.2); GLUCOSE 88 mg/dL (70-105); POTASSIUM SERUM 3.7 mEq/L (3.5-5.1); SGOT 24 U/L (13-39); SGPT/ALT 11 U/L (7-52); SODIUM SERUM 137 mEq/L (136-145); TOTAL PROTEIN,SERUM 6.9 gm/dL (6.0-8.3)
[2019-05-17 16:10] LABS: CHOLESTEROL 138 mg/dL (<200); HDL -HIGH DENSITY LIPOPROTEIN 37 mg/dL (23-92); TRIGLYCERIDES 74 mg/dL (<150)
[2019-05-17 16:22] LABS: BAND NEUTROPHILE 1 % (0-10); EOSINOPHIL 4 % (0-5); LYMPHOCYTE 43 % (20-50); MONOCYTE 7 % (2-10)
[2019-05-17 16:23] LABS: NEUTROPHILS 45 % (40-80)
[2019-05-17 16:24] LABS: PLATELET ESTIMATE DECREASED PLATELETS (NORMAL)
[2019-05-17 18:49] LABS: URINE SOURCE CLEAN C
[2019-05-17 18:51] LABS: URINE BILIRUBIN NEGATIVE (NEGATIVE); URINE BLOOD NEGATIVE (NEGATIVE); URINE GLUCOSE (UA) NEGATIVE (NEGATIVE); URINE KETONE NEGATIVE (NEGATIVE); URINE LEUKOCYTE ESTERASE TRACE (NEGATIVE); URINE MICROSCOPIC INDICATED? YES; URINE NITRATE NEGATIVE (NEGATIVE); URINE PROTEIN NEGATIVE (NEGATIVE)
[2019-05-17 18:53] LABS: URINE CLARITY CLEAR (CLEAR); URINE COLOR YELLOW
[2019-05-17 18:56] LABS: URINE BACTERIA 2+ /hpf (NONE SEEN); URINE EPITHELIAL CELLS FEW /lpf (FEW); URINE RBC 0-2 /hpf (0-5)
[2019-05-17 20:49] VITALS: BP 143/87
[2019-05-18 05:05] LABS: EOSINOPHILE ABSOLUTE 0.1 Th/cmm (0.1-0.4); HEMATOCRIT 32.2 % (41.0-60); HEMOGLOBIN 10.8 gm/dL (12-16); LYMPHOCYTE ABSOLUTE 1.1 Th/cmm (1.5-3.0); MEAN CELL VOLUME 96.7 fl (81-100); MEAN CORPUSCULAR HEMOGLOBIN 32.5 pg (27.0-31.0); MEAN CORPUSCULAR HGB CONC 33.6 pg (28.0-36.0); MONOCYTE ABSOLUTE 0.2 Th/cmm (0.3-1.0); NEUTROPHILE ABSOLUTE 0.7 Th/cmm (1.8-8.0); PLATELET COUNT 63 Th/cmm (150-400); RED BLOOD COUNT 3.33 Mil/cmm (3.80-5.20)
[2019-05-18 05:38] LABS: ANION GAP 10.1 (7.0-16.0); BUN - UREA NITROGEN 11 mg/dL (7-25); CALCIUM SERUM 8.7 mg/dL (8.6-10.3); CARBON DIOXIDE 26.4 mEq/L (21.0-31.0); CHLORIDE 106 mEq/L (98-107); CREATININE - SERUM 0.5 mg/dL (0.6-1.2); GLUCOSE 107 mg/dL (70-105); POTASSIUM SERUM 3.5 mEq/L (3.5-5.1); SODIUM SERUM 139 mEq/L (136-145)
[2019-05-18 06:06] LABS: WHITE BLOOD COUNT 2.1 Th/cmm (4.8-10.8)
[2019-05-18 06:29] LABS: NEUTROPHILS 35 % (40-80)
[2019-05-18 06:30] LABS: LYMPHOCYTE 60 % (20-50); MONOCYTE 5 % (2-10)
--- NOTE | 2019-05-18 09:00 | History and Physical ---
History of Present Illness - HPI Chief Complaint: Weakness HPI: 79 yo female from a [facility] for evaluation and treatment because of the sudden onset of weakness. Vital Signs: Last Vital Signs Temp 96.7 F 05/18/19 07:52 Pulse 60 05/18/19 07:52 Resp 18 05/18/19 07:52 BP 155/48 05/18/19 07:52 Pulse Ox 94 05/18/19 07:52 Past Medical History Cardiovascular: Report: HTN, Hyperlipidemia Psych: Report: Bipolar, Other (psychotic disorder) Musculoskeletal: Report: Weakness, Stiffness Rheumatologic: Report: Other (DJD) Other History: poor historian Family Medical History - Family Member Mother History Unknown: Yes Ethnicity: Living Status: Unknown Hx Family Diabetes: Yes Social History Smoke: No Alcohol: None Drugs: None Lives: Halfway - Medications Home Medications: Home Medication Medication Instructions Recorded Type Acetaminophen [Pain Reliever] 2 tab PO Q4H PRN 05/17/19 History Acetaminophen [Pain Reliever] 650 mg PO Q4H PRN 05/17/19 History Atorvastatin Calcium [Lipitor] 20 mg PO HS 05/17/19 History B Complex with Vitamin C [Natural 1 tab PO DAILY 05/17/19 History B Complex with C] Calcium Carbonate/Vitamin D3 1 tab PO DAILY 05/17/19 History [Calcium 500-Vit D3 200 Tablet] Clonidine HCl [Catapres] 0.1 mg PO DAILY 05/17/19 History Dextran 70/Hypromellose 1 each OP QID 05/17/19 History [Artificial Tears] Divalproex DR [Depakote DR] 250 mg PO BID 05/17/19 History Docusate Sodium [Colace] 100 mg PO BID 05/17/19 History Hydralazine HCl 12.5 mg PO Q2D 05/17/19 History Hydrochlorothiazide [Hctz*] 25 mg PO Q2D 05/17/19 History Insulin Aspart Sliding Scale 0 units SUBQ AC 05/17/19 History [NovoLOG INSULIN SLIDING SCALE] Latanoprost/Pf [Latanoprost 0.005% 1 drop OP HS 05/17/19 History Eye Drop] Magnesium Hydroxide [Milk of 30 ml PO HS PRN 05/17/19 History Magnesia] OLANZapine [ZyPREXA] 10 mg PO HS 05/17/19 History Polyethylene Glycol 3350 [Miralax] 17 gm PO DAILY PRN 05/17/19 History metFORMIN [Glucophage] 850 mg PO BID 05/17/19 History - Allergies Allergies/Adverse Reactions: Allergies Allergy/AdvReac Type Severity Reaction Status Date / Time aspirin Allergy Verified 03/22/18 12:34 hydromorphone [From Dilaudid] Allergy Verified 03/22/18 12:34 ibuprofen Allergy Verified 03/22/18 12:34 NSAIDS (Non-Steroidal Allergy Verified 03/22/18 12:34 Anti-Inflamma Review of Systems - Review of Systems Constitutional: Report: No Significant Eyes: Report: No Significant Respiratory: Report: No Significant Cardiovascular: Report: No Significant Musculoskeletal: Report: Other (generalized weakness) Neurological: Report: Weakness Physical Exam - Physical Exam HEENT: Report: Ears Nose Throat within normal limits Neck: Report: Within normal limits Cardiovascular Systems: Report: +s1/s2 noted, Regular, Rate and Rhythm, no murmurs noted, No JVD Present Respiratory: Report: Breath Sounds are within normal limits Abdomen: Report: Non-tender to palpation, Other (abdominal obesity) Extremities: Report: Non-tender to palpation. Skin: Report: Color of skin is within normal limits, Warm Neuro/Psych: Report: Depressed affect - Lab Results All Lab Results last 24 hours: Laboratory Results - last 24 hr 05/17/19 05/17/19 05/17/19 15:45 15:45 15:45 WBC 2.1 L* RBC 3.38 L Hgb 11.1 L Hct 33.0 L MCV 97.6 MCH 32.9 H MCHC Differential 33.7 RDW 14.3 Plt Count 62 L MPV 8.6 Add Manual Diff YES Neutrophils % FLIGHT ATTENDANT RAMP Band Neutrophils % 1 Lymphocytes % FLIGHT ATTENDANT RAMP Monocytes % FLIGHT ATTENDANT RAMP Eosinophils % FLIGHT ATTENDANT RAMP Basophils % FLIGHT ATTENDANT RAMP Neutrophils (Manual) 45 Lymphocytes 43 Monocytes 7 Eosinophils 4 Platelet Estimate DECREASED PLATELETS PT 12.5 H INR 1.21 PTT (Actin FS) 28.5 Sodium Potassium Chloride Carbon Dioxide Anion Gap BUN Creatinine Est GFR ( Amer) Est GFR (Non-Af Amer) BUN/Creatinine Ratio Glucose Whole Bld Lactic Acid Calcium Total Bilirubin AST ALT Alkaline Phosphatase Troponin I Total Protein Albumin Globulin Albumin/Globulin Ratio Triglycerides 74 Cholesterol 138 LDL Cholesterol Direct 88 HDL Cholesterol 37 TSH Urine Source Urine Color Urine Clarity Urine pH Ur Specific [place] Urine Protein Urine Glucose (UA) Urine Ketones Urine Blood Urine Nitrate Urine Bilirubin Urine Urobilinogen Ur Leukocyte Esterase Urine RBC Urine WBC Ur Epithelial Cells Urine Bacteria RPR 05/17/19 05/17/19 05/17/19 15:45 15:45 15:45 WBC RBC Hgb Hct MCV MCH MCHC Differential RDW Plt Count MPV Add Manual Diff Neutrophils % Band Neutrophils % Lymphocytes % Monocytes % Eosinophils % Basophils % Neutrophils (Manual) Lymphocytes Monocytes Eosinophils Platelet Estimate PT INR PTT (Actin FS) Sodium 137 Potassium 3.7 Chloride 105 Carbon Dioxide 24.6 Anion Gap 11.1 BUN 13 Creatinine 0.5 L Est GFR ( Amer) TNP Est GFR (Non-Af Amer) TNP BUN/Creatinine Ratio 26.0 Glucose 88 Whole Bld Lactic Acid Calcium 9.1 Total Bilirubin 0.7 AST 24 ALT 11 Alkaline Phosphatase 38 Troponin I 0.02 Total Protein 6.9 Albumin 3.2 L Globulin 3.7 Albumin/Globulin Ratio 0.9 L Triglycerides Cholesterol LDL Cholesterol Direct HDL Cholesterol TSH 7.12 H Urine Source Urine Color Urine Clarity Urine pH Ur Specific [place] Urine Protein Urine Glucose (UA) Urine Ketones Urine Blood Urine Nitrate Urine Bilirubin Urine Urobilinogen Ur Leukocyte Esterase Urine RBC Urine WBC Ur Epithelial Cells Urine Bacteria RPR 05/17/19 05/17/19 05/17/19 15:45 16:25 18:00 WBC RBC Hgb Hct MCV MCH MCHC Differential RDW Plt Count MPV Add Manual Diff Neutrophils % Band Neutrophils % Lymphocytes % Monocytes % Eosinophils % Basophils % Neutrophils (Manual) Lymphocytes Monocytes Eosinophils Platelet Estimate PT INR PTT (Actin FS) Sodium Potassium Chloride Carbon Dioxide Anion Gap BUN Creatinine Est GFR ( Amer) Est GFR (Non-Af Amer) BUN/Creatinine Ratio Glucose Whole Bld Lactic Acid 1.56 Calcium Total Bilirubin AST ALT Alkaline Phosphatase Troponin I Total Protein Albumin Globulin Albumin/Globulin Ratio Triglycerides Cholesterol LDL Cholesterol Direct HDL Cholesterol TSH Urine Source CLEAN C Urine Color YELLOW Urine Clarity CLEAR Urine pH 7.0 Ur Specific [place] 1.015 Urine Protein NEGATIVE Urine Glucose (UA) NEGATIVE Urine Ketones NEGATIVE Urine Blood NEGATIVE Urine Nitrate NEGATIVE Urine Bilirubin NEGATIVE Urine Urobilinogen 1.0 Ur Leukocyte Esterase TRACE H Urine RBC 0-2 Urine WBC 2-5 Ur Epithelial Cells FEW Urine Bacteria 2+ H RPR NONREACTIVE 05/18/19 05/18/19 04:55 04:55 WBC 2.1 L* RBC 3.33 L Hgb 10.8 L Hct 32.2 L MCV 96.7 MCH 32.5 H MCHC Differential 33.6 RDW 14.0 Plt Count 63 L MPV 8.8 Add Manual Diff YES Neutrophils % Band Neutrophils % Lymphocytes % Monocytes % Eosinophils % Basophils % Neutrophils (Manual) 35 L Lymphocytes 60 H Monocytes 5 Eosinophils Platelet Estimate PT INR PTT (Actin FS) Sodium 139 Potassium 3.5 Chloride 106 Carbon Dioxide 26.4 Anion Gap 10.1 BUN 11 Creatinine 0.5 L Est GFR ( Amer) TNP Est GFR (Non-Af Amer) TNP BUN/Creatinine Ratio 22.0 Glucose 107 H Whole Bld Lactic Acid Calcium 8.7 Total Bilirubin AST ALT Alkaline Phosphatase Troponin I Total Protein Albumin Globulin Albumin/Globulin Ratio Triglycerides Cholesterol LDL Cholesterol Direct HDL Cholesterol TSH Urine Source Urine Color Urine Clarity Urine pH Ur Specific [place] Urine Protein Urine Glucose (UA) Urine Ketones Urine Blood Urine Nitrate Urine Bilirubin Urine Urobilinogen Ur Leukocyte Esterase Urine RBC Urine WBC Ur Epithelial Cells Urine Bacteria RPR - Assessment Assessment: Dementia Bipolar DM HTN DJD Glaucoma Hypothyroid Hyperlipidemia - Plan Plan: Continuation of care. Monitor Vitals and Labs. Continue present meds as directed. Fall precaution, frequent nursing rounds, and as needed restraints to prevent fall. Safety precaution. Supportive care. Continue collaborating with consulting specialists, case management and nursing team. Will Monitor patient and continue current treatment plan as ordered.
--- NOTE | 2019-05-18 10:25 | Diagnostic Imaging Report ---
CT scan of the brain without intravenous contrast HISTORY: Hemorrhage Total DLP equals 605 CTDI equals 6.5 Axial sections were obtained from the base of the skull to the vertex. There is prominence/enlargement of the ventricular system size. Associated enlargement of cerebral sulci and subarachnoid cisterns. Findings are consistent with changes of generalized cerebral atrophy. No acute parenchymal abnormalities. No acute cerebral hemorrhage. Hypodensity is seen within the supratentorial white matter regions without mass effect. The findings may be associated with chronic small vessel ischemic disease. No extra-axial masses or abnormal fluid collections. IMPRESSION: 1. No acute abnormalities 2. Cerebral atrophy 3. Supratentorial white matter changes that may reflect chronic small vessel ischemic disease
--- NOTE | 2019-05-18 10:34 | Diagnostic Imaging Report ---
Exam: Portable chest x-ray HISTORY: Congestion Findings: Portable summation of chest upright at 15 3040 compatible prior study 03/22/2018 demonstrates left upper lobe peribronchial infiltrate. Mild congestion is present. The heart is not enlarged. The costophrenic angles are clear. IMPRESSION: Mild congestion. Left upper lobe infiltrate follow-up exam is recommended.
[2019-05-18] MEDS ORDERED: Albuterol/Ipratropium Neb 3 ML AERS HHN ONE (13:37)
[2019-05-18] MEDS: Albuterol/Ipratropium Neb 3 ML AERS HHN PRN (13:37)
[2019-05-18] MEDS ORDERED: Non-Formulary Item 1 EA (Acetaminophen [Pain Reliever] 650 MG) PO PRN (14:00)
[2019-05-18] MEDS ORDERED: Magnesium Hydroxide (MOM) 30 mL UDC PO PRN (14:03)
[2019-05-18] MEDS: D5-0.45NS 1,000 ML IV SCH (16:13)
[2019-05-18] MEDS: Acetaminophen 500 MG TAB PO PRN ×2 (16:24→20:59)
[2019-05-18] MEDS ORDERED: Non-Formulary Item 1 EA (Dextran 70/Hypromellose [Artificial Tears] 1 EACH) OP SCH (17:00)
[2019-05-18] MEDS: Atorvastatin Calcium 10 MG TAB PO SCH (20:56)
[2019-05-18] MEDS ORDERED: Non-Formulary Item 1 EA (Atorvastatin Calcium [Lipitor] 20 MG) PO SCH (21:00)
--- NOTE | 2019-05-18 21:32 | Consultation ---
DATE OF CONSULTATION: 05/18/2019 NEUROLOGY CONSULTATION HISTORY OF PRESENT ILLNESS: The patient is an 79-year-old. The patient is from intermediate. The patient complains of weakness. Apparently, the patient is having difficulty walking. They also noted that the patient is more confused than usual. The patient herself is awake, alert, sitting in bed. She will answer simple questions, but obviously is confused. PAST MEDICAL HISTORY: The patient with dementia. No other major medical problems. REVIEW OF SYSTEMS: On direct questioning from the patient, she complained that she has difficulty walking, unsteady. The patient confused. Complains of pain all over, pain in the feet. MEDICATIONS: No medications here at the moment. PHYSICAL EXAMINATION: VITAL SIGNS: Temperature 97.5, blood pressure 148/53, pulse is 62. NECK: Supple. No neck bruits. HEART: Normal heart sounds. LUNGS: Clear. NEUROLOGIC: The patient is awake, alert. She is pleasant. She gives me her name. She speaks both [place]ese and Azeri. She is able to name simple objects such as pen and glasses. When asked what date, she says "I don't know." She does not know what month it is. Pupils react to light. Full eye movement. No nystagmus. No facial weakness. MOTOR: She will lift arms up. She is kind of somewhat weaker in the legs, but she is able to lift them up and hold them. Reflexes -1 upper extremity, essentially absent at knees and ankles, reduced sensation IMPRESSION: 1. The patient's weakness. 2. 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 3. The patient's change in cognition acute. PLAN: We will go ahead and do a CT scan of the head. The patient's workup here shows low white count, low platelets, hematology. JOB# [id number]
[2019-05-18] MEDS: Polyvinyl Alcohol Ophth Soln 15 mL Bottle EACH EYE SCH (21:42)
[2019-05-19] MEDS ORDERED: B COMPLEX WITH VITAMIN C PO SCH (09:00)
[2019-05-19] MEDS: Vitamin B Complex w/Vitamin C Tab PO SCH (09:05)
[2019-05-19] MEDS: Calcium Carb/Vit D 500 mg/200 U Tab PO SCH (09:05)
[2019-05-19] MEDS: Polyvinyl Alcohol Ophth Soln 15 mL Bottle EACH EYE SCH ×4 (09:06→21:19)
--- NOTE | 2019-05-19 10:33 | Consultation ---
DATE OF CONSULTATION: HEMATOLOGY AND ONCOLOGY CONSULTATION REFERRED BY: Dr. Chong. REASON FOR CONSULTATION: Neutropenia. HISTORY OF PRESENT ILLNESS: The patient is an 79-year-old female with dementia and generalized weakness. She was admitted from [facility] because of worsening of her generalized weakness. 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 She was also found to have cytopenia; therefore, I was asked to evaluate. PAST MEDICAL HISTORY: Hypertension, dyslipidemia, bipolar disorder, weakness. MEDICATIONS: Atorvastatin, calcium, vitamin D supplementation, hydralazine, hydrochlorothiazide, B complex. PHYSICAL EXAMINATION: GENERAL: She is awake, not in respiratory distress. VITAL SIGNS: Temperature 97, blood pressure 159/53. HEENT: Atraumatic. NECK: Supple. CHEST: Equal air entry. ABDOMEN: Soft, obese. EXTREMITIES: 1+ edema. NERVOUS SYSTEM: Moves four extremities. No focal deficits. LABORATORY DATA: White count 2.1, hemoglobin 10.8, platelet count 63, MCV 96 and mean platelet volume 8.8. Coagulation panel is normal. Creatinine is 0.5. Liver functions normal. Urinalysis is unremarkable and x-ray from admission reported infiltrate in left upper lobe. 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 There is no recent abdominal ultrasound to evaluate the size of the spleen and I will obtain abdominal ultrasound, vitamin B12 and folate levels and CYNDY with reflex. The patient is currently not neutropenic and the absolute neutrophil count is 1200. No need for Neupogen support and she is not febrile or septic. The differential diagnosis includes B12 deficiency, myelodysplastic syndrome or autoimmune disorder associated with cytopenia. Further recommendations will be outlined based on the results of the workup. Thank you, Dr. Chong, for the opportunity to participate in the care of this interesting case. [facility]# [id number]
--- NOTE | 2019-05-19 11:25 | Internal Medicine Prog Note ---
Internal Medicine Subjective - Subjective Service Date: 05/19/19 Patient seen and examined:: with staff Patient is:: awake, verbal Patient Complaints of:: other (Generalized weakness.) Per staff patient has:: no adverse event, no episodes of fall Internal Medicine Objective - Results Result Diagrams: 05/18/19 04:55 05/18/19 04:55 Recent Labs: Laboratory Last Values WBC 2.1 Th/cmm (4.8-10.8) L* 05/18/19 04:55 RBC 3.33 Mil/cmm (3.80-5.20) L 05/18/19 04:55 Hgb 10.8 gm/dL (12-16) L 05/18/19 04:55 Hct 32.2 % (41.0-60) L 05/18/19 04:55 MCV 96.7 fl (81-100) 05/18/19 04:55 MCH 32.5 pg (27.0-31.0) H 05/18/19 04:55 MCHC Differential 33.6 pg (28.0-36.0) 05/18/19 04:55 RDW 14.0 % (11.5-20.0) 05/18/19 04:55 Plt Count 63 Th/cmm (150-400) L 05/18/19 04:55 MPV 8.8 fl 05/18/19 04:55 Add Manual Diff YES 05/18/19 04:55 Neutrophils % CREDIT OFFICER 05/17/19 15:45 Band Neutrophils % 1 % (0-10) 05/17/19 15:45 Lymphocytes % CREDIT OFFICER 05/17/19 15:45 Monocytes % CREDIT OFFICER 05/17/19 15:45 Eosinophils % CREDIT OFFICER 05/17/19 15:45 Basophils % CREDIT OFFICER 05/17/19 15:45 Neutrophils (Manual) 35 % (40-80) L 05/18/19 04:55 Lymphocytes 60 % (20-50) H 05/18/19 04:55 Monocytes 5 % (2-10) 05/18/19 04:55 Eosinophils 4 % (0-5) 05/17/19 15:45 Platelet Estimate DECREASED PLATELETS (NORMAL) 05/17/19 15:45 PT 12.5 SECONDS (9.5-11.5) H 05/17/19 15:45 INR 1.21 (0.5-1.4) 05/17/19 15:45 PTT (Actin FS) 28.5 SECONDS (26.0-38.0) 05/17/19 15:45 Sodium 139 mEq/L (136-145) 05/18/19 04:55 Potassium 3.5 mEq/L (3.5-5.1) 05/18/19 04:55 Chloride 106 mEq/L (98-107) 05/18/19 04:55 Carbon Dioxide 26.4 mEq/L (21.0-31.0) 05/18/19 04:55 Anion Gap 10.1 (7.0-16.0) 05/18/19 04:55 BUN 11 mg/dL (7-25) 05/18/19 04:55 Creatinine 0.5 mg/dL (0.6-1.2) L 05/18/19 04:55 Est GFR ( Amer) TNP 05/18/19 04:55 Est GFR (Non-Af Amer) TNP 05/18/19 04:55 BUN/Creatinine Ratio 22.0 05/18/19 04:55 Glucose 107 mg/dL (70-105) H 05/18/19 04:55 Whole Bld Lactic Acid 1.56 mmol/L (0.60-1.99) 05/17/19 16:25 Calcium 8.7 mg/dL (8.6-10.3) 05/18/19 04:55 Total Bilirubin 0.7 mg/dL (0.3-1.0) 05/17/19 15:45 AST 24 U/L (13-39) 05/17/19 15:45 ALT 11 U/L (7-52) 05/17/19 15:45 Alkaline Phosphatase 38 U/L (34-104) 05/17/19 15:45 Troponin I 0.02 ng/mL (0.01-0.05) 05/17/19 15:45 Total Protein 6.9 gm/dL (6.0-8.3) 05/17/19 15:45 Albumin 3.2 gm/dL (3.7-5.3) L 05/17/19 15:45 Globulin 3.7 gm/dL 05/17/19 15:45 Albumin/Globulin Ratio 0.9 (1.0-1.8) L 05/17/19 15:45 Triglycerides 74 mg/dL (<150) 05/17/19 15:45 Cholesterol 138 mg/dL (<200) 05/17/19 15:45 LDL Cholesterol Direct 88 mg/dL (75-193) 05/17/19 15:45 HDL Cholesterol 37 mg/dL (23-92) 05/17/19 15:45 TSH 7.12 uIU/ml (0.34-5.60) H 05/17/19 15:45 Urine Source CLEAN C 05/17/19 18:00 Urine Color YELLOW 05/17/19 18:00 Urine Clarity CLEAR (CLEAR) 05/17/19 18:00 Urine pH 7.0 (4.6 - 8.0) 05/17/19 18:00 Ur Specific [place] 1.015 (1.005-1.030) 05/17/19 18:00 Urine Protein NEGATIVE mg/dL (NEGATIVE) 05/17/19 18:00 Urine Glucose (UA) NEGATIVE mg/dL (NEGATIVE) 05/17/19 18:00 Urine Ketones NEGATIVE mg/dL (NEGATIVE) 05/17/19 18:00 Urine Blood NEGATIVE (NEGATIVE) 05/17/19 18:00 Urine Nitrate NEGATIVE (NEGATIVE) 05/17/19 18:00 Urine Bilirubin NEGATIVE (NEGATIVE) 05/17/19 18:00 Urine Urobilinogen 1.0 E.U./dL (0.2 - 1.0) 05/17/19 18:00 Ur Leukocyte Esterase TRACE (NEGATIVE) H 05/17/19 18:00 Urine RBC 0-2 /hpf (0-5) 05/17/19 18:00 Urine WBC 2-5 /hpf (0-5) 05/17/19 18:00 Ur Epithelial Cells FEW /lpf (FEW) 05/17/19 18:00 Urine Bacteria 2+ /hpf (NONE SEEN) H 05/17/19 18:00 RPR NONREACTIVE (NONREACTIVE) 05/17/19 15:45 - Physical Exam Vitals and I&O: Vital Signs Temp 97.4 F 05/19/19 04:00 Pulse 75 05/19/19 09:38 Resp 18 05/19/19 09:38 BP 159/53 05/19/19 04:00 Pulse Ox 95 05/19/19 09:38 Intake & Output 06/05/19/19 05/19/19 18:59 06:59 18:59 Intake Total 200 Balance 200 Weight (lbs) 76.657 kg Intake: Oral 200 Other: # Voids 2 Weight Source Bedscale Active Medications: Current Medications Acetaminophen (Tylenol Extra Strength) 500 mg PO Q4H PRN PRN Reason: Pain (Moderate) Stop: 07/17/19 13:59 Last Admin: 05/18/19 20:59 Dose: 500 mg Albuterol/Ipratropium (Duoneb Neb) 3 ml HHN Q2H PRN PRN Reason: Wheezing Stop: 07/17/19 13:28 Last Admin: 05/18/19 13:37 Dose: 3 ml Artificial Tears (Artificial Tears Ophth Soln) 1 drop EACH EYE QID [facility] Stop: 07/17/19 20:59 Last Admin: 05/19/19 09:06 Dose: 1 drop Atorvastatin Calcium (Lipitor) 20 mg PO HS [facility] Stop: 07/17/19 20:59 Last Admin: 05/18/19 20:56 Dose: 20 mg Calcium/Vitamin D (Oscal W/Vitamin D) 1 tab PO DAILY [facility] Stop: 07/18/19 08:59 Last Admin: 05/19/19 09:05 Dose: 1 tab Docusate Sodium (Colace) 100 mg PO BID [facility] Stop: 07/17/19 16:59 Last Admin: 05/19/19 09:05 Dose: 100 mg Hydralazine HCl (Apresoline) 12.5 mg PO Q2D [facility] Stop: 07/17/19 14:14 Last Admin: 05/18/19 14:41 Dose: 12.5 mg Hydrochlorothiazide (Hctz) 25 mg PO Q2D [facility] Stop: 07/17/19 14:14 Last Admin: 05/18/19 14:42 Dose: 25 mg Dextrose/Sodium Chloride (D5-0.45ns) 1,000 mls @ 50 mls/hr IV .Q20H [facility] Stop: 07/16/19 18:59 Last Admin: 05/18/19 16:13 Dose: 50 mls/hr Latanoprost (Xalatan 0.005% Ophth Soln) 1 drop EACH EYE HS [facility] Stop: 07/17/19 20:59 Last Admin: 05/18/19 21:41 Dose: Not Given Magnesium Hydroxide (Milk Of Magnesia) 30 ml PO HS PRN PRN Reason: Constipation Stop: 07/17/19 14:02 Vitamin B Complex/Vit C/Folic Acid (Vitamin B Complex W/Vitamin C) 1 tab PO DAILY [facility] Stop: 07/18/19 08:59 Last Admin: 05/19/19 09:05 Dose: 1 tab Physical Exam: 79 y/o female patient complains of generalized weakness. General: weak HEENT: NC/AT Neck: Supple Lungs: CTAB Cardiovascular: RRR, Normal S1 Abdomen: soft, non-tender Extremities: clear Neurological: no change Internal Medicine Assmt/Plan - Assessment Assessment: Generalized weakness. Htn. Hyperlipidemia. Bipolar. DJD. Depression. Dementia. B-12 Deficiency. Hypothyroidism. - Plan Plan: Continuation of care. Monitor Vitals and Labs. Continue present meds as directed. Monitor vitals, Continue BP meds as directed. Monitor Diet/Nutritional support. Psych management per Psych. Pain Management. Fall precaution, frequent nursing rounds, and as needed restraints to prevent fall. Safety precaution. Supportive care. Continue collaborating with consulting specialists, case management and nursing team. Will Monitor patient and continue present care management. Nutritional Asmnt/Malnutr-PDOC - Dietary Evaluation Malnutrition Findings (Please click <Entered> for more info): see orders.
[2019-05-19] MEDS: D5-0.45NS 1,000 ML IV SCH (14:31)
[2019-05-19] MEDS: Atorvastatin Calcium 10 MG TAB PO SCH (21:01)
[2019-05-19] MEDS: Acetaminophen 500 MG TAB PO PRN (21:19)
[2019-05-20] MEDS: Vitamin B Complex w/Vitamin C Tab PO SCH (08:56)
[2019-05-20] MEDS: Polyvinyl Alcohol Ophth Soln 15 mL Bottle EACH EYE SCH ×3 (08:56→16:39)
[2019-05-20] MEDS: Calcium Carb/Vit D 500 mg/200 U Tab PO SCH (08:56)
--- NOTE | 2019-05-20 10:10 | Diagnostic Imaging Report ---
Abdominal ultrasound HISTORY: Splenomegaly The exam is very limited and suboptimal due to a large amount of bowel gas and difficulty in patient cooperation and mobility. There is incomplete visualization of the liver. No obvious focal lesions. Suboptimal evaluation of the fundal region of the gallbladder. There is question of a 3 mm intraluminal echogenic density near the gallbladder neck. A small calculus cannot be excluded. No biliary dilatation. The pancreas is normal signal bowel gas. The kidneys are suboptimally delineated. No definite focal lesions or hydronephrosis. The spleen appears to be enlarged (13.1 x 5.0 x 4.6 cm). No other obvious retroperitoneal or intra-abdominal abnormalities. IMPRESSION: 1. Suboptimal/Limited exam 2. Splenomegaly 3. Question small intraluminal echogenic density within the gallbladder. A calculus cannot be excluded 4. No other obvious abnormalities
[2019-05-20 11:03] LABS: HEMATOCRIT 30.7 % (41.0-60); HEMOGLOBIN 10.7 gm/dL (12-16); MEAN CELL VOLUME 95.3 fl (81-100); MEAN CORPUSCULAR HEMOGLOBIN 33.3 pg (27.0-31.0); MEAN CORPUSCULAR HGB CONC 34.9 pg (28.0-36.0); PLATELET COUNT 60 Th/cmm (150-400); RED BLOOD COUNT 3.22 Mil/cmm (3.80-5.20); RED CELL DISTRIBUTION WIDTH 14.2 % (11.5-20.0); WHITE BLOOD COUNT 1.9 Th/cmm (4.8-10.8)
[2019-05-20] MEDS: D5-0.45NS 1,000 ML IV SCH (11:06)
[2019-05-20 11:51] LABS: BAND NEUTROPHILE 1 % (0-10); BASOPHIL 0 % (0-3); EOSINOPHIL 0 % (0-5); LYMPHOCYTE 36 % (20-50); MONOCYTE 9 % (2-10); NEUTROPHILS 54 % (40-80)
[2019-05-20 11:52] LABS: PLATELET ESTIMATE DECREASED PLATELETS (NORMAL)
[2019-05-20] MEDS: Albuterol/Ipratropium Neb 3 ML AERS HHN PRN (15:06)
--- NOTE | 2019-05-20 16:50 | General Progress Note ---
Subjective - Review of Systems Service Date: 05/20/19 Objective - Results Result Diagrams: 05/20/19 10:35 05/18/19 04:55 Recent Labs: Laboratory Last Values WBC 1.9 Th/cmm (4.8-10.8) L* 05/20/19 10:35 RBC 3.22 Mil/cmm (3.80-5.20) L 05/20/19 10:35 Hgb 10.7 gm/dL (12-16) L 05/20/19 10:35 Hct 30.7 % (41.0-60) L 05/20/19 10:35 MCV 95.3 fl (81-100) 05/20/19 10:35 MCH 33.3 pg (27.0-31.0) H 05/20/19 10:35 MCHC Differential 34.9 pg (28.0-36.0) 05/20/19 10:35 RDW 14.2 % (11.5-20.0) 05/20/19 10:35 Plt Count 60 Th/cmm (150-400) L 05/20/19 10:35 MPV 8.9 fl 05/20/19 10:35 Add Manual Diff YES 05/20/19 10:35 Neutrophils % POKER MANAGER 05/17/19 15:45 Band Neutrophils % 1 % (0-10) 05/20/19 10:35 Lymphocytes % POKER MANAGER 05/17/19 15:45 Monocytes % POKER MANAGER 05/17/19 15:45 Eosinophils % POKER MANAGER 05/17/19 15:45 Basophils % POKER MANAGER 05/17/19 15:45 Neutrophils (Manual) 54 % (40-80) 05/20/19 10:35 Lymphocytes 36 % (20-50) 05/20/19 10:35 Monocytes 9 % (2-10) 05/20/19 10:35 Eosinophils 0 % (0-5) 05/20/19 10:35 Basophils 0 % (0-3) 05/20/19 10:35 Platelet Estimate DECREASED PLATELETS (NORMAL) 05/20/19 10:35 PT 12.5 SECONDS (9.5-11.5) H 05/17/19 15:45 INR 1.21 (0.5-1.4) 05/17/19 15:45 PTT (Actin FS) 28.5 SECONDS (26.0-38.0) 05/17/19 15:45 Sodium 139 mEq/L (136-145) 05/18/19 04:55 Potassium 3.5 mEq/L (3.5-5.1) 05/18/19 04:55 Chloride 106 mEq/L (98-107) 05/18/19 04:55 Carbon Dioxide 26.4 mEq/L (21.0-31.0) 05/18/19 04:55 Anion Gap 10.1 (7.0-16.0) 05/18/19 04:55 BUN 11 mg/dL (7-25) 05/18/19 04:55 Creatinine 0.5 mg/dL (0.6-1.2) L 05/18/19 04:55 Est GFR ( Amer) TNP 05/18/19 04:55 Est GFR (Non-Af Amer) TNP 05/18/19 04:55 BUN/Creatinine Ratio 22.0 05/18/19 04:55 Glucose 107 mg/dL (70-105) H 05/18/19 04:55 Whole Bld Lactic Acid 1.56 mmol/L (0.60-1.99) 05/17/19 16:25 Calcium 8.7 mg/dL (8.6-10.3) 05/18/19 04:55 Total Bilirubin 0.7 mg/dL (0.3-1.0) 05/17/19 15:45 AST 24 U/L (13-39) 05/17/19 15:45 ALT 11 U/L (7-52) 05/17/19 15:45 Alkaline Phosphatase 38 U/L (34-104) 05/17/19 15:45 Troponin I 0.02 ng/mL (0.01-0.05) 05/17/19 15:45 Total Protein 6.9 gm/dL (6.0-8.3) 05/17/19 15:45 Albumin 3.2 gm/dL (3.7-5.3) L 05/17/19 15:45 Globulin 3.7 gm/dL 05/17/19 15:45 Albumin/Globulin Ratio 0.9 (1.0-1.8) L 05/17/19 15:45 Triglycerides 74 mg/dL (<150) 05/17/19 15:45 Cholesterol 138 mg/dL (<200) 05/17/19 15:45 LDL Cholesterol Direct 88 mg/dL (75-193) 05/17/19 15:45 HDL Cholesterol 37 mg/dL (23-92) 05/17/19 15:45 TSH 7.12 uIU/ml (0.34-5.60) H 05/17/19 15:45 Urine Source CLEAN C 05/17/19 18:00 Urine Color YELLOW 05/17/19 18:00 Urine Clarity CLEAR (CLEAR) 05/17/19 18:00 Urine pH 7.0 (4.6 - 8.0) 05/17/19 18:00 Ur Specific [place] 1.015 (1.005-1.030) 05/17/19 18:00 Urine Protein NEGATIVE mg/dL (NEGATIVE) 05/17/19 18:00 Urine Glucose (UA) NEGATIVE mg/dL (NEGATIVE) 05/17/19 18:00 Urine Ketones NEGATIVE mg/dL (NEGATIVE) 05/17/19 18:00 Urine Blood NEGATIVE (NEGATIVE) 05/17/19 18:00 Urine Nitrate NEGATIVE (NEGATIVE) 05/17/19 18:00 Urine Bilirubin NEGATIVE (NEGATIVE) 05/17/19 18:00 Urine Urobilinogen 1.0 E.U./dL (0.2 - 1.0) 05/17/19 18:00 Ur Leukocyte Esterase TRACE (NEGATIVE) H 05/17/19 18:00 Urine RBC 0-2 /hpf (0-5) 05/17/19 18:00 Urine WBC 2-5 /hpf (0-5) 05/17/19 18:00 Ur Epithelial Cells FEW /lpf (FEW) 05/17/19 18:00 Urine Bacteria 2+ /hpf (NONE SEEN) H 05/17/19 18:00 RPR NONREACTIVE (NONREACTIVE) 05/17/19 15:45 - Physical Exam Vitals and I&O: Vital Signs Temp 98.5 F 05/20/19 16:00 Pulse 79 05/20/19 16:00 Resp 18 05/20/19 16:00 BP 155/68 05/20/19 16:00 Pulse Ox 96 05/20/19 16:00 Intake & Output 05/19/19 05/20/19 05/20/19 18:59 06:59 18:59 Intake Total 6266 318 2886 Balance 0719 475 7331 Weight (lbs) 76.657 kg 76.657 kg Intake: Intake, IV Amount 1000 1000 D5-0.45NS 1,000 ml @ 50 1000 1000 mls/hr IV .Q20H [facility] Rx#: [id number] Oral 500 200 Other: # Voids 3 2 Weight Source Bedscale Bedscale Active Medications: Current Medications Acetaminophen (Tylenol Extra Strength) 500 mg PO Q4H PRN PRN Reason: Pain (Moderate) Stop: 07/17/19 13:59 Last Admin: 05/19/19 21:19 Dose: 500 mg Albuterol/Ipratropium (Duoneb Neb) 3 ml HHN Q2H PRN PRN Reason: Wheezing Stop: 07/17/19 13:28 Last Admin: 05/20/19 15:06 Dose: 3 ml Artificial Tears (Artificial Tears Ophth Soln) 1 drop EACH EYE QID [facility] Stop: 07/17/19 20:59 Last Admin: 05/20/19 16:39 Dose: 1 drop Atorvastatin Calcium (Lipitor) 20 mg PO HS [facility] Stop: 07/17/19 20:59 Last Admin: 05/19/19 21:01 Dose: 20 mg Calcium/Vitamin D (Oscal W/Vitamin D) 1 tab PO DAILY [facility] Stop: 07/18/19 08:59 Last Admin: 05/20/19 08:56 Dose: 1 tab Diphenhydramine HCl (Benadryl) 25 mg PO QID PRN PRN Reason: Itching Stop: 07/19/19 01:03 Docusate Sodium (Colace) 100 mg PO BID [facility] Stop: 07/17/19 16:59 Last Admin: 05/20/19 16:39 Dose: 100 mg Hydralazine HCl (Apresoline) 12.5 mg PO Q2D [facility] Stop: 07/17/19 14:14 Last Admin: 05/20/19 13:59 Dose: 12.5 mg Hydrochlorothiazide (Hctz) 25 mg PO Q2D [facility] Stop: 07/17/19 14:14 Last Admin: 05/20/19 13:59 Dose: 25 mg Dextrose/Sodium Chloride (D5-0.45ns) 1,000 mls @ 50 mls/hr IV .Q20H [facility] Stop: 07/16/19 18:59 Last Admin: 05/20/19 11:06 Dose: 50 mls/hr Latanoprost (Xalatan 0.005% Ophth Soln) 1 drop EACH EYE HS [facility] Stop: 07/17/19 20:59 Last Admin: 05/19/19 21:19 Dose: 1 drop Magnesium Hydroxide (Milk Of Magnesia) 30 ml PO HS PRN PRN Reason: Constipation Stop: 07/17/19 14:02 Vitamin B Complex/Vit C/Folic Acid (Vitamin B Complex W/Vitamin C) 1 tab PO DAILY [facility] Stop: 07/18/19 08:59 Last Admin: 05/20/19 08:56 Dose: 1 tab Assessment/Plan - Assessment Assessment: The cytopenia is longstanding, reviewing old records from 02/2018 showed a similar picture with pancytopenia. There is no recent abdominal ultrasound to evaluate the size of the spleen and I will obtain abdominal ultrasound, vitamin B12 and folate levels and CYNDY with reflex. The patient is currently not neutropenic and the absolute neutrophil count is 1200. No need for Neupogen support and she is not febrile or septic. The differential diagnosis includes B12 deficiency, myelodysplastic syndrome or autoimmune disorder associated with cytopenia.
--- NOTE | 2019-05-20 18:49 | Internal Medicine Prog Note ---
Internal Medicine Subjective - Subjective Service Date: 05/20/19 Patient is:: awake, verbal Patient Complaints of:: other (Generalized weakness.) Per staff patient has:: no adverse event, no episodes of fall Internal Medicine Objective - Results Result Diagrams: 05/20/19 10:35 05/18/19 04:55 Recent Labs: Laboratory Last Values WBC 1.9 Th/cmm (4.8-10.8) L* 05/20/19 10:35 RBC 3.22 Mil/cmm (3.80-5.20) L 05/20/19 10:35 Hgb 10.7 gm/dL (12-16) L 05/20/19 10:35 Hct 30.7 % (41.0-60) L 05/20/19 10:35 MCV 95.3 fl (81-100) 05/20/19 10:35 MCH 33.3 pg (27.0-31.0) H 05/20/19 10:35 MCHC Differential 34.9 pg (28.0-36.0) 05/20/19 10:35 RDW 14.2 % (11.5-20.0) 05/20/19 10:35 Plt Count 60 Th/cmm (150-400) L 05/20/19 10:35 MPV 8.9 fl 05/20/19 10:35 Add Manual Diff YES 05/20/19 10:35 Neutrophils % MANAGER PRODUCT MARKETING 05/17/19 15:45 Band Neutrophils % 1 % (0-10) 05/20/19 10:35 Lymphocytes % MANAGER PRODUCT MARKETING 05/17/19 15:45 Monocytes % MANAGER PRODUCT MARKETING 05/17/19 15:45 Eosinophils % MANAGER PRODUCT MARKETING 05/17/19 15:45 Basophils % MANAGER PRODUCT MARKETING 05/17/19 15:45 Neutrophils (Manual) 54 % (40-80) 05/20/19 10:35 Lymphocytes 36 % (20-50) 05/20/19 10:35 Monocytes 9 % (2-10) 05/20/19 10:35 Eosinophils 0 % (0-5) 05/20/19 10:35 Basophils 0 % (0-3) 05/20/19 10:35 Platelet Estimate DECREASED PLATELETS (NORMAL) 05/20/19 10:35 PT 12.5 SECONDS (9.5-11.5) H 05/17/19 15:45 INR 1.21 (0.5-1.4) 05/17/19 15:45 PTT (Actin FS) 28.5 SECONDS (26.0-38.0) 05/17/19 15:45 Sodium 139 mEq/L (136-145) 05/18/19 04:55 Potassium 3.5 mEq/L (3.5-5.1) 05/18/19 04:55 Chloride 106 mEq/L (98-107) 05/18/19 04:55 Carbon Dioxide 26.4 mEq/L (21.0-31.0) 05/18/19 04:55 Anion Gap 10.1 (7.0-16.0) 05/18/19 04:55 BUN 11 mg/dL (7-25) 05/18/19 04:55 Creatinine 0.5 mg/dL (0.6-1.2) L 05/18/19 04:55 Est GFR ( Amer) TNP 05/18/19 04:55 Est GFR (Non-Af Amer) TNP 05/18/19 04:55 BUN/Creatinine Ratio 22.0 05/18/19 04:55 Glucose 107 mg/dL (70-105) H 05/18/19 04:55 POC Glucose 186 MG/DL (70 - 105) H 05/20/19 17:01 Whole Bld Lactic Acid 1.56 mmol/L (0.60-1.99) 05/17/19 16:25 Calcium 8.7 mg/dL (8.6-10.3) 05/18/19 04:55 Total Bilirubin 0.7 mg/dL (0.3-1.0) 05/17/19 15:45 AST 24 U/L (13-39) 05/17/19 15:45 ALT 11 U/L (7-52) 05/17/19 15:45 Alkaline Phosphatase 38 U/L (34-104) 05/17/19 15:45 Troponin I 0.02 ng/mL (0.01-0.05) 05/17/19 15:45 Total Protein 6.9 gm/dL (6.0-8.3) 05/17/19 15:45 Albumin 3.2 gm/dL (3.7-5.3) L 05/17/19 15:45 Globulin 3.7 gm/dL 05/17/19 15:45 Albumin/Globulin Ratio 0.9 (1.0-1.8) L 05/17/19 15:45 Triglycerides 74 mg/dL (<150) 05/17/19 15:45 Cholesterol 138 mg/dL (<200) 05/17/19 15:45 LDL Cholesterol Direct 88 mg/dL (75-193) 05/17/19 15:45 HDL Cholesterol 37 mg/dL (23-92) 05/17/19 15:45 TSH 7.12 uIU/ml (0.34-5.60) H 05/17/19 15:45 Urine Source CLEAN C 05/17/19 18:00 Urine Color YELLOW 05/17/19 18:00 Urine Clarity CLEAR (CLEAR) 05/17/19 18:00 Urine pH 7.0 (4.6 - 8.0) 05/17/19 18:00 Ur Specific [place] 1.015 (1.005-1.030) 05/17/19 18:00 Urine Protein NEGATIVE mg/dL (NEGATIVE) 05/17/19 18:00 Urine Glucose (UA) NEGATIVE mg/dL (NEGATIVE) 05/17/19 18:00 Urine Ketones NEGATIVE mg/dL (NEGATIVE) 05/17/19 18:00 Urine Blood NEGATIVE (NEGATIVE) 05/17/19 18:00 Urine Nitrate NEGATIVE (NEGATIVE) 05/17/19 18:00 Urine Bilirubin NEGATIVE (NEGATIVE) 05/17/19 18:00 Urine Urobilinogen 1.0 E.U./dL (0.2 - 1.0) 05/17/19 18:00 Ur Leukocyte Esterase TRACE (NEGATIVE) H 05/17/19 18:00 Urine RBC 0-2 /hpf (0-5) 05/17/19 18:00 Urine WBC 2-5 /hpf (0-5) 05/17/19 18:00 Ur Epithelial Cells FEW /lpf (FEW) 05/17/19 18:00 Urine Bacteria 2+ /hpf (NONE SEEN) H 05/17/19 18:00 RPR NONREACTIVE (NONREACTIVE) 05/17/19 15:45 - Physical Exam Vitals and I&O: Vital Signs Temp 98.5 F 05/20/19 16:45 Pulse 88 05/20/19 18:47 Resp 20 05/20/19 18:47 BP 155/68 05/20/19 16:45 Pulse Ox 96 05/20/19 18:47 Intake & Output 05/19/19 05/20/19 05/20/19 18:59 06:59 18:59 Intake Total 1800 235 5338 Balance 1202 968 8644 Weight (lbs) 169 lb 169 lb Intake: Intake, IV Amount 1000 1000 D5-0.45NS 1,000 ml @ 50 1000 1000 mls/hr IV .Q20H [facility] Rx#: [id number] Oral 500 200 Other: # Voids 3 2 Weight Source Bedscale Bedscale Active Medications: Current Medications Acetaminophen (Tylenol Extra Strength) 500 mg PO Q4H PRN PRN Reason: Pain (Moderate) Stop: 07/17/19 13:59 Last Admin: 05/19/19 21:19 Dose: 500 mg Albuterol/Ipratropium (Duoneb Neb) 3 ml HHN Q2H PRN PRN Reason: Wheezing Stop: 07/17/19 13:28 Last Admin: 05/20/19 15:06 Dose: 3 ml Artificial Tears (Artificial Tears Ophth Soln) 1 drop EACH EYE QID [facility] Stop: 07/17/19 20:59 Last Admin: 05/20/19 16:39 Dose: 1 drop Atorvastatin Calcium (Lipitor) 20 mg PO HS [facility] Stop: 07/17/19 20:59 Last Admin: 05/19/19 21:01 Dose: 20 mg Calcium/Vitamin D (Oscal W/Vitamin D) 1 tab PO DAILY [facility] Stop: 07/18/19 08:59 Last Admin: 05/20/19 08:56 Dose: 1 tab Diphenhydramine HCl (Benadryl) 25 mg PO QID PRN PRN Reason: Itching Stop: 07/19/19 01:03 Docusate Sodium (Colace) 100 mg PO BID [facility] Stop: 07/17/19 16:59 Last Admin: 05/20/19 16:39 Dose: 100 mg Hydralazine HCl (Apresoline) 12.5 mg PO Q2D [facility] Stop: 07/17/19 14:14 Last Admin: 05/20/19 13:59 Dose: 12.5 mg Hydrochlorothiazide (Hctz) 25 mg PO Q2D [facility] Stop: 07/17/19 14:14 Last Admin: 05/20/19 13:59 Dose: 25 mg Dextrose/Sodium Chloride (D5-0.45ns) 1,000 mls @ 50 mls/hr IV .Q20H [facility] Stop: 07/16/19 18:59 Last Admin: 05/20/19 11:06 Dose: 50 mls/hr Latanoprost (Xalatan 0.005% Ophth Soln) 1 drop EACH EYE HS [facility] Stop: 07/17/19 20:59 Last Admin: 05/19/19 21:19 Dose: 1 drop Magnesium Hydroxide (Milk Of Magnesia) 30 ml PO HS PRN PRN Reason: Constipation Stop: 07/17/19 14:02 Vitamin B Complex/Vit C/Folic Acid (Vitamin B Complex W/Vitamin C) 1 tab PO DAILY [facility] Stop: 07/18/19 08:59 Last Admin: 05/20/19 08:56 Dose: 1 tab General: weak HEENT: NC/AT Neck: Supple Lungs: CTAB Cardiovascular: RRR, Normal S1 Abdomen: soft, non-tender Extremities: clear Neurological: no change Internal Medicine Assmt/Plan - Assessment Assessment: Dementia Bipolar DM HTN DJD Glaucoma Hypothyroid Hyperlipidemia . - Plan Plan: Continuation of care. Monitor Vitals and Labs. Continue present meds as directed. Fall precaution, frequent nursing rounds, and as needed restraints to prevent fall. Safety precaution. Supportive care. Continue collaborating with consulting specialists, case management and nursing team. Will Monitor patient and continue current treatment plan as ordered
[2019-05-21 03:11] LABS: FOLIC ACID >20.0 ng/mL (>3.0)
== END 2019-05-20 18:53 | DRG 73 ==
LOC: ER 15:12 → MSI 17:37
PROVIDERS: ADMIT Internal Medicine; ATTEND Internal Medicine
DX: G62.9 Polyneuropathy, unspecified (principal); J18.9 Pneumonia, unspecified organism; D61.818 Other pancytopenia; I10 Essential (primary) hypertension; F03.90 Unspecified dementia, unspecified severity, without behavioral disturbance, psychotic disturbance, mood disturbance, and anxiety; E11.9 Type 2 diabetes mellitus without complications; E78.5 Hyperlipidemia, unspecified; H40.9 Unspecified glaucoma; R27.0 Ataxia, unspecified; F31.9 Bipolar disorder, unspecified; M19.90 Unspecified osteoarthritis, unspecified site; E03.9 Hypothyroidism, unspecified; D69.6 Thrombocytopenia, unspecified; E53.8 Deficiency of other specified B group vitamins
CPT/HCPCS: 36415-UA; 70450-TC; 71045-TC; 76700-TC; 80048-TC; 80053-TC; 80061-TC; 81001-TC; 82607-90; 82746-90; 82948-90; 83605; 84443-TC; 84484-TC; 85007-TC; 85025-TC; 85610-TC; 85730-TC; 86592-TC; 87086-90; 93005; 94640; 94760; Z7610